=== PATIENT | male | born 1975 | race Hispanic/Latino ===

== ENCOUNTER → 2021-01-03 | Outpatient (CLI) | payer OTHER | END | disposition home or self-care (01) | LOC: OIH 14:50 | PROVIDERS: ATTEND Nurse Practitioner Family | DX: M54.5 Low back pain (principal); R06.02 Shortness of breath; M25.551 Pain in right hip; R07.9 Chest pain, unspecified | CPT/HCPCS: 71046; 72100; 73502 ==

== ENCOUNTER → 2023-07-29 | Outpatient (CLI) | payer OTHER | END | disposition home or self-care (01) | LOC: RAH 08:12 | PROVIDERS: ATTEND Nurse Practitioner Family | DX: M54.16 Radiculopathy, lumbar region (principal) | CPT/HCPCS: 72148 ==

== ENCOUNTER 2024-06-28 11:21 | Emergency (ER) | payer OTHER ==
[~2024-06-28] VITALS: Ht 172.7 cm; Wt 104.3 kg
[2024-06-28] MEDS: ketOROlac 60 MG VIAL (30MG/ML) IM ONE (12:49)
[2024-06-28] MEDS ORDERED: CYCL10TA16 PO (14:09)
[2024-06-28] MEDS ORDERED: IBUP-2070 PO (14:09)
[2024-06-28 14:10] VITALS: BP 122/82; PULSE 65; RESP 18; TEMP 98.3; O2SAT 99
== END 2024-06-28 14:15 | disposition home or self-care (01) ==
LOC: EDH 11:21
DX: S76.911A Strain of unspecified muscles, fascia and tendons at thigh level, right thigh, initial encounter (principal); M79.651 Pain in right thigh; X58.XXXA Exposure to other specified factors, initial encounter; Y93.89 Activity, other specified; Y99.8 Other external cause status; Y92.89 Other specified places as the place of occurrence of the external cause
CPT/HCPCS: 99283; 73552; 96372; J1885

== ENCOUNTER 2025-01-19 09:37 | Emergency (ER) | payer OTHER ==
[~2025-01-19] VITALS: Ht 170.2 cm; Wt 93.0 kg
[~2025-01-19 09:37] MED LIST: CYCL10TA16 PO; IBUP-2070 PO
--- NOTE | 2025-01-19 10:08 | ERN ---
General Chief Complaint: Skin Rash/Abscess Stated Complaint: RASH/SPOTS TO HANDS X ONE MONTH Time Seen by MD: 09:41 Source: patient History of Present Illness Initial Comments Patient is a 49-year-old male coming in to be evaluated for multiple complaints. Patient states that he has had Allergies: Coded Allergies: No Known Allergies (Unverified Allergy, Unknown, 06/28/24) Home Meds Active Scripts Cyclobenzaprine HCl (Flexeril) 10 Mg Tab, 10 MG PO TID for muscle sstiffness, #14 TAB 0 Refills Prov:ASHWIN ORONA MD 06/28/24 Ibuprofen (Ibuprofen) 600 Mg Tablet, 600 MG PO Q6H PRN for PAIN, #15 TAB Prov:ASHWIN ORONA MD 06/28/24 Past Medical History Past Medical History: No Pertinent History Medical History Other: SCIAITCA Past Surgical History: None Surgical History Other: ABD SX Results EKG/XRAY/US/CT/MRI Ultrasound Comment [place] [id number] [address] IMAGING REPORT Signed PATIENT: MARLI DANIEL MR#: [id number] : 1975 SEX: M AGE: 49 LOCATION: [facility] ORDER 8 STATUS: [facility] ER REPORT#: [id number] SERVICE REASON: left neck lymphnode swelling ORDERING PHYSICIAN: JUAN MALIN MD PROCEDURE: SOFT NECK - US SOFT TISSUE NECK Exam Type: US SOFT TISSUE NECK Clinical Information: left neck lymphnode swelling Comparison: None Findings and impression: Sebaceous cyst at either concern measuring 11 x 9 mm. No other abnormalities. DICTATED BY: ANURAG APONTE MD DATE: 01/19/25 1016 ELECTRONICALLY SIGNED BY: ANURAG APONTE MD DATE: 01/19/25 1020 [facility] MDM: Differential diagnosis: Sebaceous cyst, hand warts Rationale: Tests considered and ordered secondary to shared decision making incl ude: Previous outside records reviewed: Old ER visits. Risk of complication and/or morbidity or mortality of patient management: None Patient is a 49-year-old gentleman coming in to be evaluated for hand warts. Patient states that these has been ongoing for several months long with the hand warts he states that he was a lymph node behind his ear that has been present for several years. Ultrasound disclose the sebaceous cyst. I will refer him to Dermatology to continue evaluating hand warts. ED Course Orders Procedure Category Date Status Time Us Soft Tissue Neck US 01/19/25 Resulted 09:48 Vital Signs Date Time Temp Pulse Resp B/P (MAP) Pulse Ox O2 Delivery O2 Flow Rate FiO2 01/19/25 09:38 98.1 71 16 129/81 97 Room Air 0 DX & DISP Disposition: Discharge Departure Impression: Primary Impression: Sebaceous cyst Additional Impression: Wart of hand Condition: Stable Additional Instructions: FOLLOW-UP WITH PRIMARY CARE PROVIDER IN 1 TO 2 DAYS. TAKE MEDICATIONS DIRECTED HERE IN THE EMERGENCY ROOM. OKAY TO CONTINUE HOME MEDICATIONS UNLESS OTHERWISE DISCUSSED DURING YOUR VISIT IN THE EMERGENCY ROOM TODAY. RETURN TO YOUR NEAREST EMERGENCY ROOM IF SYMPTOMS WORSEN OR IF THERE IS NO IMPROVEMENT. CALL 911 IF YOU NEED IMMEDIATE ASSISTANCE. TAKE TYLENOL [id number] NEEDED AND IF NO CONTRAINDICATIONS ARE PRESENT. INCREASE ORAL HYDRATION. A WOUND CULTURE OR URINE CULTURE WAS ORDERED HERE IN THE EMERGENCY ROOM DEPARTMENT PLEASE FOLLOW-UP WITH PRIMARY CARE PROVIDER AND ADVISE THEM TO GET REPEAT PORTS FROM OUR FACILITY. IF YOU HAD ANY SHWETA WRAP/SPLINTS THAT WERE APPLIED HERE, PLEASE DO NOT REMOVE THEM UNTIL YOU SEE YOUR PRIMARY CARE OR SPECIALTY. Referrals: Referrals: SUKHJINDER MO MD (PCP) [place] TESFAYE KEITH A Time of Disposition: 10:53 JUAN MALIN MD Jan 19, 2025 10:08
--- NOTE | 2025-01-19 10:20 | HMCIMG ---
Exam Type: US SOFT TISSUE NECK Clinical Information: left neck lymphnode swelling Comparison: None Findings and impression: Sebaceous cyst at either concern measuring 11 x 9 mm. No other abnormalities.
[2025-01-19 11:34] VITALS: BP 152/90; PULSE 92; RESP 16; TEMP 97.8; O2SAT 97
== END 2025-01-19 11:34 | disposition home or self-care (01) ==
LOC: EDH 09:37
DX: L72.3 Sebaceous cyst (principal); B07.9 Viral wart, unspecified; Z79.899 Other long term (current) drug therapy
CPT/HCPCS: 76536; 99284